=== PATIENT | male | born 1990 | race Two or more races ===

== ENCOUNTER 2025-05-04 22:27 | Emergency (ER) | payer OTHER ==
[~2025-05-04] VITALS: Ht 177.8 cm; Wt 72.6 kg
[2025-05-04] MEDS ORDERED: LIDOCAINE HCL 1% 10ML VIAL PERCUT ONE (23:45)
[2025-05-04] MEDS ORDERED: CEFTRIAXONE SODIUM 1,000 MG VIAL IM ONE (23:45)
[2025-05-04] MEDS ORDERED: TETANUS & DIPHTHERIA TOX,ADULT 0.5 ML VIAL IM ONE (23:45)
[2025-05-04] MEDS ORDERED: TRAMADOL HCL 50 MG TABLET PO ONE (23:45)
[2025-05-05] MEDS ORDERED: CEFTRIAXONE SODIUM 1,000 MG VIAL ONE (00:23)
[2025-05-05] MEDS ORDERED: DIPHTH,PERTUSS(ACELL),TET VAC 0.5 ML SYRINGE IM ONE (00:24)
[2025-05-05] MEDS ORDERED: PEPCID AC20 MG PO (00:28)
[2025-05-05] MEDS ORDERED: CEFUROXIME500 MG PO (00:28)
== END 2025-05-05 00:42 | disposition home or self-care (01) ==
LOC: ER 22:28
DX: S01.02XA Laceration with foreign body of scalp, initial encounter (principal); W18.39XA Other fall on same level, initial encounter; Y93.89 Activity, other specified; Y92.018 Other place in single-family (private) house as the place of occurrence of the external cause
CPT/HCPCS: 12002; 70450; 72125; 90471; 90714; J1670

== ENCOUNTER → 2025-05-21 | Emergency (ER) | payer OTHER ==
[~2025-05-21] MED LIST: CEFUROXIME500 MG PO; PEPCID AC20 MG PO
== END | disposition left against medical advice (07) ==
LOC: ER 18:28
DX: Z53.21 Procedure and treatment not carried out due to patient leaving prior to being seen by health care provider (principal)